=== PATIENT | female | born 1950 | race Caucasian/White ===

== ENCOUNTER 2016-12-09 12:30 | Emergency (ER) | payer MEDICARE ==
[~2016-12-09] VITALS: Ht 165.1 cm; Wt 90.7 kg
[2016-12-09] MEDS ORDERED: IV NORMAL SALINE 1000ML BAG 1,000 ML IV SCH (12:42)
[2016-12-09] MEDS ORDERED: fentaNYL PF VIAL 100 MCG/2 ML VIAL IV ONE (12:45)
[2016-12-09] MEDS ORDERED: ONDANSETRON PF 4 MG/2 ML VIAL. IV ONE (12:45)
[2016-12-09 13:15] LABS: BASO # 0.1 x10^3/uL (0.0-0.2); BASO % 1 % (0-3); EOS % 0 % (0-3); HEMATOCRIT 42.5 % (36.0-47.0); HEMOGLOBIN 14.3 g/dL (12.0-15.5); LYMPH # 0.5 x10^3/uL (1.0-4.8); LYMPH % 5 % (24-48); MEAN CORPUSCULAR HEMOGLOBIN 28 pg (25-35); MEAN CORPUSCULAR HGB CONC 34 g/dL (31-37); MEAN CORPUSCULAR VOLUME 82 fL (79-100); MONO % 5 % (0-9); NEUT % 89 % (31-73); PLATELET COUNT 242 x10^3/uL (140-400); RED BLOOD COUNT 5.17 x10^6/uL (3.50-5.40); RED CELL DISTRIBUTION WIDTH 15.2 % (11.5-14.5); WHITE BLOOD COUNT 9.4 x10^3/uL (4.0-11.0)
[2016-12-09 13:18] LABS: CALCIUM 9.9 mg/dL (8.5-10.1); CREATININE 1.2 mg/dL (0.6-1.0); GFR 45.1
[2016-12-09 13:24] LABS: ALBUMIN 4.1 g/dL (3.4-5.0); ALBUMIN/GLOBULIN RATIO 1.1 (1.0-1.7); TOTAL BILIRUBIN 0.5 mg/dL (0.2-1.0); TOTAL PROTEIN 7.7 g/dL (6.4-8.2)
[2016-12-09] MEDS: fentaNYL PF VIAL 100 MCG/2 ML VIAL IV PRN ×2 (13:58→16:01)
[2016-12-09 14:22] LABS: % EOS 1 % (0-5); PLT ESTIMATE ADEQUATE (ADEQUATE)
[2016-12-09 14:30] LABS: BILIRUBIN,URINE SMALL (NEG); GLUCOSE,URINE NEGATIVE (NEG); NITRITE,URINE NEGATIVE (NEG); PROTEIN,URINE 30 mg/dL (NEG-TRACE)
--- NOTE | 2016-12-09 14:41 | RAD ---
CT of the abdomen and pelvis without contrast, 12/09/2016: History: Right flank pain Noncontrast scans were obtained utilizing the renal stone protocol. There are single tiny medullary opacities in both kidneys. The right renal pelvis and ureter are dilated. There is streaky peripelvic edema on the right. The right ureter is dilated down to the level of the ureterovesical junction at which point a 4 mm radiopacity is noted along the posterior wall of the urinary bladder. The appearance is that of an obstructing calculus lodged in the intramural segment of the distal right ureter. The left renal collecting system and left ureter are not dilated. The urinary bladder is collapsed and not well delineated. The unopacified liver is unremarkable. No gallbladder abnormality is seen. The pancreas shows no abnormality. The spleen is of normal size. No abdominal or pelvic adenopathy is evident. The uterus is small. There is a 5.1 x 6.7 cm left adnexal cystic structure, probably of ovarian origin. Its wall appears to be smooth and thin. The bowel loops are not dilated. The appendix is visualized and shows no abnormality. No free air or free fluid is evident in the abdomen or pelvis. There are moderate degenerative changes in the spine. There are multiple vertebral compression fractures of indeterminate ages. Vertebroplasty change is evident at the T11 level. There is a cystic structure in the sacrum just to the right of midline which most likely represents a prominent perineural root sleeve cyst. There is an additional small 15 mm presacral cyst just to the left of midline. IMPRESSION: 1. 4 mm obstructing calculus at the right ureterovesical junction with mild associated hydronephrosis and right peripelvic edema. 2. Additional tiny bilateral medullary renal calcifications. 3. Left-sided pelvic cyst, probably of ovarian origin. Sonographic follow-up may be prudent to establish stability. 4. Multiple vertebral compression fractures. PQRS Compliance Statement: One or more of the following individualized dose reduction techniques were utilized for this examination: 1. Automated exposure control 2. Adjustment of the mA and/or kV according to patient size 3. Use of iterative reconstruction technique
[2016-12-09 14:45] LABS: BACTERIA,URINE 0 /HPF (0-FEW)
[2016-12-09 15:47] VITALS: BP 160/75
[2016-12-09] MEDS ORDERED: KETOROLAC 30 MG/ML INJ. IV ONE (16:00)
[2016-12-09] MEDS ORDERED: TAMSULOSIN 0.4 MG CAP.ER.24H. PO ONE (16:00)
[2016-12-09] MEDS ORDERED: IBUP-1060 PO (16:18)
[2016-12-09] MEDS ORDERED: TAMS0.4C97 PO (16:18)
[2016-12-09] MEDS ORDERED: HYDR-971 PO (16:18)
--- NOTE | 2016-12-09 16:18 | PHYS DOC ---
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 Patient has problems with some chronic back pain but this is different. She has had pain in her right flank going down radiating into her right groin area intermittently, for several days off and on. She went to the doctor's office this morning and they called 911 to have her come in here for evaluation. Patient has had nausea. She has felt hot and cold but no measured temp. She denies urinary symptoms. Patient has a history of osteoporosis and multiple thoracic and lumbar compression fractures. She has had T 11 vertebral/kyphoplasty. 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 She has not had kidney stones or other kidney problems. PCP [facility] Dr. Hilario Salas Review of Systems Review of Systems Constitutional: She has felt hot and cold Eyes: Denies change in visual acuity, redness, or eye pain [] HENT: Denies nasal congestion or sore throat [] Respiratory: Denies cough or shortness of breath [] Cardiovascular: Denies cardiac sounding chest pain GI: As in history of present illness : As in history of present illness Musculoskeletal: As in history of present illness Integument: Denies rash or skin lesions [] Neurologic: Denies headache, focal weakness or sensory changes [] Current Medications Current Medications Current Medications Medications (Trade) Dose Ordered Sig/Shayy Start Time Stop Time Status Last Admin Dose Admin Fentanyl Citrate (Fentanyl 2ml Vial) 100 mcg 1X ONCE 12/09/16 12:45 12/09/16 13:55 DC 12/09/16 13:05 100 MCG Ketorolac Tromethamine (Toradol) 30 mg 1X ONCE 12/09/16 16:00 12/09/16 16:01 DC 12/09/16 16:01 30 MG Ondansetron HCl (Zofran) 4 mg 1X ONCE 12/09/16 12:45 12/09/16 13:55 DC 12/09/16 13:05 4 MG Sodium Chloride 1,000 ml @ 1,000 mls/hr Q1H 12/09/16 12:42 12/09/16 13:55 DC 12/09/16 13:03 1,000 MLS/HR Tamsulosin HCl (Flomax) 0.4 mg 1X ONCE 12/09/16 16:00 12/09/16 16:01 DC 12/09/16 16:02 0.4 MG Allergies Allergies Allergies Coded Allergies Type Severity Reaction Last Updated Verified Sulfa (Sulfonamide Antibiotics) Allergy Intermediate 12/09/16 Yes codeine Allergy Intermediate 12/09/16 Yes Physical Exam Physical Exam Constitutional: Well developed, well nourished, alert, mentating normally, appears very uncomfortable, somewhat colicky appearing HENT: Normocephalic, atraumatic, bilateral external ears normal, nose normal. [ ] Eyes: conjunctiva normal, no discharge. [] Neck: Normal range of motion, no stridor. [] Cardiovascular:Heart rate regular rhythm, no murmur [] Lungs & Thorax: Bilateral breath sounds clear to auscultation [] Abdomen: Bowel sounds normal, soft, nondistended, no masses, no pulsatile masses. Mild generalized tenderness to palpation on the right side of the abdomen, nonlocalized, no rebound or guarding Skin: Warm, dry, no erythema, no rash. [] Back: Mild right CVA tenderness Extremities: No tenderness, no cyanosis, no clubbing, ROM intact, no edema. [] Neurologic: Alert and oriented X 3, normal motor function, no focal deficits noted. [] Current Patient Data Vital Signs Vital Signs Date Time Temp Pulse Resp B/P (MAP) Pulse Ox O2 Delivery O2 Flow Rate FiO2 12/09/16 16:01 24 98 Room Air 12/09/16 15:47 87 160/75 (103) 12/09/16 12:30 98.8 98.8 Lab Values Laboratory Tests Test 12/09/16 13:00 12/09/16 14:10 White Blood Count 9.4 x10^3/uL (4.0-11.0) Red Blood Count 5.17 x10^6/uL (3.50-5.40) Hemoglobin 14.3 g/dL (12.0-15.5) Hematocrit 42.5 % (36.0-47.0) Mean Corpuscular Volume 82 fL (79-100) Mean Corpuscular Hemoglobin 28 pg (25-35) Mean Corpuscular Hemoglobin Concent 34 g/dL (31-37) Red Cell Distribution Width 15.2 % (11.5-14.5) H Platelet Count 242 x10^3/uL (140-400) Neutrophils (%) (Auto) 89 % (31-73) H Lymphocytes (%) (Auto) 5 % (24-48) L Monocytes (%) (Auto) 5 % (0-9) Eosinophils (%) (Auto) 0 % (0-3) Basophils (%) (Auto) 1 % (0-3) Neutrophils # (Auto) 8.3 x10^3uL (1.8-7.7) H Lymphocytes # (Auto) 0.5 x10^3/uL (1.0-4.8) L Monocytes # (Auto) 0.5 x10^3/uL (0.0-1.1) Eosinophils # (Auto) 0.0 x10^3/uL (0.0-0.7) Basophils # (Auto) 0.1 x10^3/uL (0.0-0.2) Segmented Neutrophils % 85 % (35-66) H Band Neutrophils % 3 % (0-9) Lymphocytes % 5 % (24-48) L Monocytes % 6 % (0-10) Eosinophils % 1 % (0-5) Platelet Estimate Adequate (ADEQUATE) Sodium Level 142 mmol/L (136-145) Potassium Level 4.0 mmol/L (3.5-5.1) Chloride Level 103 mmol/L (98-107) Carbon Dioxide Level 27 mmol/L (21-32) Anion Gap 12 (6-14) Blood Urea Nitrogen 20 mg/dL (7-20) Creatinine 1.2 mg/dL (0.6-1.0) H Estimated GFR (Cockcroft-Gault) 45.1 BUN/Creatinine Ratio 17 (6-20) Glucose Level 120 mg/dL (70-99) H Calcium Level 9.9 mg/dL (8.5-10.1) Total Bilirubin 0.5 mg/dL (0.2-1.0) Aspartate Amino Transferase (AST) 29 U/L (15-37) Alanine Aminotransferase (ALT) 30 U/L (14-59) Alkaline Phosphatase 73 U/L (46-116) Total Protein 7.7 g/dL (6.4-8.2) Albumin 4.1 g/dL (3.4-5.0) Albumin/Globulin Ratio 1.1 (1.0-1.7) Lipase 200 U/L (73-393) Urine Collection Type U cath Urine Color Deepthi Urine Clarity Clear Urine pH 6.0 Urine Specific [place] >=1.030 Urine Protein 30 mg/dL (NEG-TRACE) Urine Glucose (UA) Negative mg/dL (NEG) Urine Ketones (Stick) 40 mg/dL (NEG) Urine Blood Negative (NEG) Urine Nitrite Negative (NEG) Urine Bilirubin Small (NEG) Urine Urobilinogen Dipstick 1.0 mg/dL (0.2 mg/dL) Urine Leukocyte Esterase Small (NEG) Urine RBC 3-5 /HPF (0-2) Urine WBC 11-20 /HPF (0-4) Urine Bacteria 0 /HPF (0-FEW) Urine Mucus Marked /LPF Laboratory Tests 12/09/16 13:00 Laboratory Tests 12/09/16 13:00 EKG EKG [] Radiology/Procedures Radiology/Procedures CT scan of the abdomen and pelvis interpreted by the radiologist.4 mm obstructing calculus at the right ureterovesical junction with mild associated hydronephrosis and right peripelvic edema.[] Course & Med Decision Making Course & Med Decision Making Pertinent Labs and Imaging studies reviewed. (See chart for details) 66-year-old female presents with right flank pain radiating into her right groin. Patient was given IV pain medication. She was much more comfortable. She was able to undergo CT scanning which did demonstrate a 4 mm stone at the right UVJ. Labs unremarkable for acute findings. I discussed options with the patient. We discussed the possibility of discharge home with medications for control of ureteral colic and pain control, strain urine, follow up with urology versus admission to the hospital for pain control and urologic intervention if needed. Patient chose to try to manage her pain and symptoms at home. Return precautions were given. See instructions for plan. Also noted that the CT scan showed a left sided pelvic cyst, probably of ovarian origin. I called the patient at her home number on Monday morning to let her know about this finding and I advised her to have her primary care physician requested CT scan report so that he can know what the report says and advised ultrasound follow-up in 3-6 months. The patient did state when I called her that she was able to sleep, her right flank pain into her groin did not bother her last night. She will take her next dose of Flomax at 4 PM today. [] Dragon Disclaimer Dragon Disclaimer This electronic medical record was generated, in whole or in part, using a voice recognition dictation system. Departure Departure Impression: Primary Impression: Kidney stone on right side Additional Impressions: Right ureteral stone Ureteral colic Disposition: HOME, SELF-CARE Condition: IMPROVED Referrals: HILARIO SALAS (PCP) Patient Instructions: Kidney Stones, [id number] Additional Instructions: As we discussed, your stone is of the size and location that very likely might pass on its own. Drink plenty of fluids. Strain your urine so you will know when it passes. If you pass the stone and your pain is gone, you don't have to worry about it anymore. If you don't pass the stone and are still having pain in the next week or so, you do need to follow up with a urologist. If your pain is worse and not able to be controlled at home, or if you run a fever, return to emergency. As we discussed, we do not have a urologist at [facility] at this time. Take Flomax 1 daily to help relax the ureter muscle. Your next dose is due tomorrow at about 4 PM. Take ibuprofen 800 mg every 6-8 hours to help keep the pain controlled and also helps relax the ureter muscle. If needed, for more severe pain, take hydrocodone as directed. As we discussed, this is an opiate and will cause sedation and constipation. Do not take it while driving. You may combine all 3 of these medications. Scripts Ondansetron (ZOFRAN ODT) 4 Mg Tab.rapdis 1 TAB SL PRN Q6-8HRS Y for NAUSEA, #10 TAB Prov: GETACHEW CASTILLO MD 12/09/16 Hydrocodone/Apap 5-325 (NORCO 5-325 TABLET) 1 Each Tablet 1-2 TAB PO Q4-6HRS for kidney stone pain, #10 TAB Prov: GETACHEW CASTILLO MD 12/09/16 Ibuprofen (IBUPROFEN) 800 Mg Tablet 800 MG PO Q8HRS Y for kidney stone pain, #30 TAB Prov: GETACHEW CASTILLO MD 12/09/16 Tamsulosin Hcl (FLOMAX) 0.4 Mg Cap.er.24h 1 CAP PO DAILY for kidney stone pain, #14 CAP 11 Refills Take once every 24 hours until your kidney stone passes Prov: GETACHEW CASTILLO MD 12/09/16 Problem Qualifiers GETACHEW CASTILLO MD Dec 09, 2016 16:18
[2016-12-09] MEDS ORDERED: ONDA4TAB10 SL (16:34)
== END 2016-12-09 16:45 | disposition home or self-care (01) ==
LOC: ER 12:30
DX: N20.2 Calculus of kidney with calculus of ureter (principal); N23 Unspecified renal colic; K21.9 Gastro-esophageal reflux disease without esophagitis; F10.10 Alcohol abuse, uncomplicated; Z88.2 Allergy status to sulfonamides; Z88.5 Allergy status to narcotic agent
CPT/HCPCS: 36415; 74176; 80053; 81001; 83690; 85007; 85025; 87086; 96361; 96374; 96375; 96376; 99285; J1885; J2405; J3010; J7030; P9612

== ENCOUNTER 2018-02-28 15:55 | Emergency (ER) | payer MEDICARE ==
[~2018-02-28] VITALS: Ht 162.6 cm; Wt 90.7 kg
[~2018-02-28 15:55] MED LIST: HYDR-3164 PO; IBUP-1060 PO; ONDA4TAB10 SL; TAMS0.4C97 PO
[2018-02-28 16:13] VITALS: BP 163/102
--- NOTE | 2018-02-28 16:59 | PHYS DOC ---
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 Patient reports she missed a step causing her to fall. Patient states she braced her fall with her right hand however did fall striking the left side of her head on the pavement. Patient denies loss of consciousness. Patient reports she is having pain left side forehead and did have corrective glasses on that broke during the fall. Patient reports she is having left breast pain, left knee pain , and right wrist pain. She denies any shortness of air. Pt denies vision changes, dizziness, or feeling lightheadedness. Patient reports she took her prescribed medications earlier today which include hydrocodone, meloxicam, Xanax, Cymbalta, and Tylenol. Review of Systems Review of Systems Constitutional: Denies fever or chills [] Eyes: Denies change in visual acuity, redness, or eye pain [] HENT: Denies nasal congestion or sore throat [] Respiratory: Denies cough or shortness of breath [] Cardiovascular: No additional information not addressed in HPI [] GI: Denies abdominal pain, nausea, vomiting, bloody stools or diarrhea [] : Denies dysuria or hematuria [] Musculoskeletal: Denies back pain or joint pain [] Integument: Denies rash or skin lesions [] Neurologic: Denies headache, focal weakness or sensory changes [] Endocrine: Denies polyuria or polydipsia [] All other systems were reviewed and found to be within normal limits, except as documented in this note. Allergies Allergies Allergies Coded Allergies Type Severity Reaction Last Updated Verified Sulfa (Sulfonamide Antibiotics) Allergy Intermediate 12/09/16 Yes codeine Allergy Intermediate 12/09/16 Yes Physical Exam Physical Exam Constitutional: Well developed, well nourished, no acute distress, non-toxic appearance. [] HENT: Normocephalic, atraumatic, bilateral external ears normal, oropharynx moist, no oral exudates, nose normal. [] Eyes: PERRLA, EOMI, conjunctiva normal, no discharge. [] Neck: Normal range of motion, no tenderness, supple, no stridor. [] Cardiovascular:Heart rate regular rhythm, no murmur [] Lungs & Thorax: Bilateral breath sounds clear to auscultation [] Abdomen: Bowel sounds normal, soft, no tenderness, no masses, no pulsatile masses. [] Skin: Warm, dry, no erythema, no rash. [] Back: No tenderness, no CVA tenderness. [] Extremities: No tenderness, no cyanosis, no clubbing, ROM intact, no edema. [] Neurologic: Alert and oriented X 3, normal motor function, normal sensory function, no focal deficits noted. [] Psychologic: Affect normal, judgement normal, mood normal. [] Current Patient Data Vital Signs Vital Signs Date Time Temp Pulse Resp B/P (MAP) Pulse Ox O2 Delivery O2 Flow Rate FiO2 02/28/18 16:13 97.4 79 20 163/102 (122) 99 Room Air 97.4 EKG EKG [] Radiology/Procedures Radiology/Procedures [] Course & Med Decision Making Course & Med Decision Making Pertinent Imaging studies reviewed. (See chart for details) 180: Reevaluation patient remains alert and oriented 3 with no focal neuro deficits. Discussed CT results with no acute findings. Chest x-ray also with no acute finding. Patient denies any change in condition. 1810: Laceration left side forehead was cleaned with normal saline and inspected for foreign body. No foreign body. Patient has had increased swelling around site 1835: Discussed pt's case with Dr. Perry who viewed xrays- pt has lumbar compression fx visualized. Discussed with pt and patient reports she is aware of multiple lumbar and thoracic compression fractures due to her osteoporosis. Patient has had 2 back surgeries in the past and multiple epidurals for pain control. Patient states she has had compression fractures from T11 into L7 and at this time is reporting her lower back pain to be similar to previous pain denies acute change. Patient denies having any incontinence of bowel or bladder. Patient denies numbness or tingling in bilateral lower extremities. Patient was offered CT of thoracic and lumbar spine for further evaluation. Patient is not wanting to have additional imaging done reports with similar pain in lower back she would follow-up outpatient with her neurosurgeon and pain management if symptoms change. Hydrocodone, meloxicam, and Xanax at home. Patient is wanting to be discharged home at this time. Head injury precautions were discussed and education provided on signs and symptoms to return to ER for. Education on home wound care discussed as patient had laceration left side forehead repaired with Dermabond. Patient was up-to-date on tetanus. Patient at time of discharge discussion had unassisted steady gait at bedside. Dragon Disclaimer Dragon Disclaimer This electronic medical record was generated, in whole or in part, using a voice recognition dictation system. Departure Departure Impression: Primary Impression: Fall Additional Impressions: Head injury Right wrist injury Left knee injury Contusion Laceration Back pain Disposition: HOME, SELF-CARE Condition: STABLE Referrals: HILARIO SALAS (PCP) MURRAY GONZALEZ MD Patient Instructions: Back Pain, Adult, Back, Compression Fracture, Contusion, Elastic Bandage and RICE, Facial Laceration, Fall Prevention and Home Safety, Head Injury, Adult, Knee Pain, Tissue Adhesive Wound Care, Wrist Pain Additional Instructions: Take your prescribed medications as prescribed. If your back pain worsens or with any concerns you can return to Emergency Department for re-evaluation. It was discussed having further imaging done with a CT of your thoracic and lumbar spine due to compression fractures. You felt your back pain was similar to previous pain you have experienced with previous diagnosed compression fractures and preferred not to have additional imaging done while in the Emergency Department. You should follow-up with your neurosurgeon in 2-3 days for re-evaluation or sooner with concerns. If your pain worsens prior to that appointment you should return to the emergency department for evaluation. If your wrist or knee pain continues or with concerns you should follow-up with orthopedic doctor for reevaluation and further care. Problem Qualifiers LACEY GONZALEZ APRN Feb 28, 2018 16:59
--- NOTE | 2018-02-28 17:00 | RAD ---
EXAM: CT HEAD WITHOUT IV CONTRAST CLINICAL HISTORY: FALL, LOC, LT HEAD LAC, NO PRIORS COMPARISON: None. TECHNIQUE: Routine CT of the head without contrast. Soft tissues and bone windows were reviewed. PQRS compliance statement - One or more of the following individualized dose reduction techniques were utilized for this study: 1. Automated exposure control 2. Adjustment of the mA and/or kV according to patient size 3. Use of iterative reconstruction technique FINDINGS: There is no evidence of hemorrhage, mass or extra-axial fluid collection. Garcia-white differentiation is maintained with no evidence of edema. There is no mass effect or shift of the intracranial structures. The ventricles, basilar cisterns and cortical sulci are normal in size and configuration for the patients stated age. The cerebellum and brainstem are unremarkable. The calvarium demonstrates no evidence of fracture or focal lesion. There is normal aeration of the visualized paranasal sinuses and mastoid air cells. The visualized portions of the orbits are normal. IMPRESSION: No evidence for acute intracranial process. EXAM: CT CERVICAL SPINE WITHOUT IV CONTRAST CLINICAL HISTORY: FALL, LOC, LT HEAD LAC, NO PRIORS COMPARISON: None available. TECHNIQUE: Helical CT of the cervical spine was performed. Axial, coronal and sagittal reformatted images were also performed. PQRS compliance statement - One or more of the following individualized dose reduction techniques were utilized for this study: 1. Automated exposure control 2. Adjustment of the mA and/or kV according to patient size 3. Use of iterative reconstruction technique FINDINGS: Vertebral body heights are preserved. No spondylolisthesis. Moderate C5-6 and C6-7 intervertebral disc height loss. Mild C4-5 intervertebral disc height loss. C2-C3: No significant central canal stenosis or neural foraminal narrowing. C3-C4: No significant central canal stenosis or neural foraminal narrowing. C4-C5: No significant central canal stenosis or neural foraminal narrowing. C5-C6: Posterior disc osteophyte complex with uncovertebral and facet degenerative change resulting in mild central canal stenosis and mild bilateral neural foraminal narrowing C6-C7: Posterior disc osteophyte complex, eccentric to the left with facet degenerative changes results in mild central canal stenosis, moderate left and mild right neural foraminal narrowing. C7-T1: No significant central canal stenosis or neural foraminal narrowing. IMPRESSION: 1. Multilevel spondylosis as above, most prominent at C6-7. 2. No acute fracture or subluxation. Electronically signed by: Valerio Fernandez MD (02/28/2018 4:56 PM) [facility]
--- NOTE | 2018-02-28 17:52 | RAD ---
CHEST PA LATERAL History: Mechanical fall today Comparison: None. Findings: Tortuous thoracic aorta. Cardiac size is normal.. Pulmonary vasculature is normal. The lungs are clear. No pleural effusion or pneumothorax is seen. There is diffuse demineralization. There are multiple compression fractures in the thoracic spine. 2 levels have been treated with vertebroplasty. IMPRESSION: No acute cardiopulmonary process. Electronically signed by: Mason Vallecillo MD (02/28/2018 5:48 PM) [facility]
--- NOTE | 2018-02-28 18:29 | RAD ---
KNEE 3 VIEWS LEFT Clinical Indication: Mechanical fall today Comparison: None. Findings: There is no acute fracture or dislocation. The tricompartmental joint spaces are all mildly narrowed. The patella is in anatomic position. There is no soft tissue abnormality. There is no joint effusion. IMPRESSION: No acute fracture. Electronically signed by: Mason Vallecillo MD (02/28/2018 6:24 PM) [facility]
--- NOTE | 2018-02-28 18:30 | RAD ---
RIGHT WRIST, 3 VIEWS Indication: Mechanical fall today Findings: There is no acute fracture or dislocation. No bony erosion is identified. The bony articulations are normal. The mineralization is normal. There is no soft tissue swelling or radiopaque foreign body. IMPRESSION: No acute fracture or dislocation. Electronically signed by: Mason Vallecillo MD (02/28/2018 6:26 PM) [facility]
--- NOTE | 2018-02-28 18:45 | RAD ---
LUMBAR SPINE 2-3V Clinical Indication: Mechanical fall today Comparison: CT abdomen and pelvis without contrast December 09, 2016. Findings: Visualized pelvic bones unremarkable. Scattered air in bowel. There are old compression fractures at superior endplates of L3, L4, and L5. There is severe old compression fracture of the L1 vertebral body with retropulsion. There is old compression fracture of T11 treated with vertebroplasty. No acute compression fracture is identified. There is minimal grade 1 anterolisthesis of L4 on L5, stable. The alignment is otherwise maintained. IMPRESSION: No acute fracture. Electronically signed by: Mason Vallecillo MD (02/28/2018 6:41 PM) [facility]
== END 2018-02-28 19:01 | disposition home or self-care (01) ==
LOC: ER 15:55
DX: S01.81XA Laceration without foreign body of other part of head, initial encounter (principal); S89.92XA Unspecified injury of left lower leg, initial encounter; S69.91XA Unspecified injury of right wrist, hand and finger(s), initial encounter; G89.29 Other chronic pain; M54.5 Low back pain; M47.812 Spondylosis without myelopathy or radiculopathy, cervical region; N64.4 Mastodynia; K21.9 Gastro-esophageal reflux disease without esophagitis; F10.20 Alcohol dependence, uncomplicated; Y90.9 Presence of alcohol in blood, level not specified; Z90.722 Acquired absence of ovaries, bilateral; Z88.2 Allergy status to sulfonamides; Z88.5 Allergy status to narcotic agent; W18.09XA Striking against other object with subsequent fall, initial encounter; Y93.89 Activity, other specified; Y92.89 Other specified places as the place of occurrence of the external cause; Y99.8 Other external cause status
CPT/HCPCS: 12011; 29125; 70450; 71046; 72100; 72125; 73110; 73562; 99284-25